=== PATIENT | male | born 1935 | race Caucasian/White ===

== ENCOUNTER → 2021-06-16 | Outpatient (CLI) | payer OTHER ==
--- NOTE | 2021-06-16 17:17 | DIREP ---
PROCEDURE:CT CHEST ABDOMEN PELVIS W&WO COMPARISON:None. INDICATIONS:F17.200 SMOKER, RENAL CYST TECHNIQUE:Axial images were obtained through the chest, abdomen and pelvis before and after the IV administration of nonionic contrast. No oral contrast was administered. Sagittal and coronal reconstructions were performed from source images. FINDINGS: LUNGS:6 x 4 mm pulmonary nodule at the left major fissure, image 39 of series 6. Multiple typical appearing pleural-based pulmonary nodules. 5 x 3 mm pulmonary nodule the left lower lobe, image 51 of series 6. Passive atelectasis at the right lower lobe secondary to underlying prominent thoracic spine osteophytes. Degenerative change of the bilateral lungs. Mild biapical pleural thickening versus scarring. PLEURA:No pleural effusion. CARDIAC:Heart is normal in size. No pericardial effusion. MEDIASTINUM/CESAR:Thyroid gland is normal. Right hilar lymphadenopathy measuring 1.2 cm in short axis dimension. Mild prominence of the left hilar lymphoid tissue which measures 6 mm in short axis dimension. There multiple prominent AP window, precarinal, and paratracheal lymph nodes which measure up to 7 mm in short axis dimension. Esophagus is normal. CHEST WALL:Normal. No mass or axillary adenopathy. LIVER:Normal. No significant liver lesions are identified. BILIARY:Gallbladder is normal. Common bile duct is dilated, measuring up to 1.0 cm in diameter.. No obvious obstructing lesion is seen. PANCREAS:Normal. No lesion, fluid collection, ductal dilatation, or atrophy. SPLEEN:Normal. ADRENALS:Normal. No mass or enlargement. URINARY TRACT:Multiple nonenhanced fluid density cysts are seen in the bilateral kidneys, measuring up to 3.7 cm in diameter at the right lower pole. Parapelvic cysts are also noted. No hydronephrosis, suspicious lesion, calcification. The ureters are normal. AORTA/VASCULAR:Heavy infrarenal calcification of the abdominal aorta. No aneurysmal dilation. RETROPERITONEUM:No retroperitoneal lymphadenopathy by CT size criteria. BOWEL/MESENTERY:Stomach is unremarkable in appearance. Large and small bowel loops nondilated. Colonic diverticulosis without CT evidence acute diverticulitis. Redundancy of the sigmoid colon. ABDOMINAL WALL:Small fat containing left inguinal hernia. PELVIC ORGANS:Prostate gland is enlarged and demonstrates posterior calcifications. The prostate gland measures 5.1 x 7.1 cm. Urinary bladder is unremarkable for degree of distention. BONES:Screw fixation of right femoral neck. Degenerative change of the spine. OTHER:Negative. CONCLUSION: Multiple nonenhancing fluid density cyst in the bilateral kidneys. No suspicious renal lesion. Pulmonary nodules measuring up to 6 x 4 mm. Recommend follow-up low-dose noncontrast chest CT in 1 year. Emphysematous change throughout the lungs. Right hilar lymphadenopathy as well as prominent mediastinal lymph nodes, of unclear significance at this time. Findings may be reactive in nature with other etiologies not excluded. Common bile duct is dilated. No obvious obstructing lesion is seen. Colonic diverticulosis without CT evidence of acute diverticulitis. Prostatic hypertrophy. Please correlate with PSA levels. Additional findings as above. Dictated by: Harish Alvarez MD on 06/16/2021 at 04:59 PM
== END | disposition home or self-care (01) ==
LOC: RAD 14:24
PROVIDERS: ATTEND Nurse Practitioner Family
DX: J43.9 Emphysema, unspecified (principal); R91.8 Other nonspecific abnormal finding of lung field; K57.30 Diverticulosis of large intestine without perforation or abscess without bleeding; N40.0 Benign prostatic hyperplasia without lower urinary tract symptoms
CPT/HCPCS: 36415; 71270; 74178; 82565; Q9965

== ENCOUNTER → 2023-06-14 | Outpatient (CLI) | payer OTHER ==
[2023-06-14 09:34] LABS: CREATININE SERUM 1.32 mg/dL (0.59-1.40); EST GFR, NON-AA 51.4 (>/=60)
== END | disposition home or self-care (01) ==
LOC: RAD 08:51
PROVIDERS: ATTEND Nurse Practitioner Family
DX: N28.1 Cyst of kidney, acquired (principal); I25.10 Atherosclerotic heart disease of native coronary artery without angina pectoris; N40.0 Benign prostatic hyperplasia without lower urinary tract symptoms; J43.2 Centrilobular emphysema
CPT/HCPCS: 74170; 36415; 82565; Q9965

== ENCOUNTER → 2024-07-10 | Outpatient (CLI) | payer OTHER | END | disposition home or self-care (01) | LOC: RAD 09:44 | PROVIDERS: ATTEND Nurse Practitioner Family | DX: J44.9 Chronic obstructive pulmonary disease, unspecified (principal); R04.2 Hemoptysis; J98.4 Other disorders of lung | CPT/HCPCS: 71046 ==